=== PATIENT | female | born 2000 ===

== ENCOUNTER 2021-08-03 20:55 | Emergency (ER) | payer OTHER, MEDICAID ==
[~2021-08-03] VITALS: Ht 172 cm; Wt 66.0 kg
[~2021-08-03 20:55] MED LIST: ACET-93 PO; ALBU8.5H2 IH; ANTIBIOTIC; AZIT250T12 PO; CEPH500T PO; FERR-84 PO; FLUT16SP22 NS; FLUT8AER2 IH; IBUP-844 PO; MONT5TAB11 PO; PRD20T PO; PREN-142 PO; STEROID
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
[2021-08-03] MEDS ORDERED: TETANUS,DIPTH,PERTUSS P/F (BOOSTRIX) 0.5 ML VIAL IM ONE (21:15)
[2021-08-03 21:23] LABS: BASOPHILS % (AUTO) 0 % (0-10); EOSINOPHILS # (AUTO) 0.2 10^3/uL (0.0-0.3); EOSINOPHILS % (AUTO) 2 % (0-10); HEMATOCRIT 40 % (35-52); HEMOGLOBIN 13.1 g/dL (11.5-16.0); LYMPHOCYTES # (AUTO) 3.4 10^3/uL (1.0-4.0); LYMPHOCYTES % (AUTO) 31 % (12-44); MEAN CORPUSCULAR HEMOGLOBIN 29 pg (25-34); MEAN CORPUSCULAR HGB CONC 33 g/dL (32-36); MEAN CORPUSCULAR VOLUME 89 fL (80-99); MEAN PLATELET VOLUME 8.6 fL (9.0-12.2); MONOCYTES # (AUTO) 0.5 10^3/uL (0.0-1.0); MONOCYTES % (AUTO) 5 % (0-12); NEUTROPHILS # (AUTO) 6.5 10^3/uL (1.8-7.8); NEUTROPHILS % (AUTO) 61 % (42-75); PLATELET COUNT 323 10^3/uL (130-400); WHITE BLOOD COUNT 10.7 10^3/uL (4.3-11.0)
[2021-08-03 21:26] LABS: ALBUMIN 4.1 GM/DL (3.2-4.5); CHLORIDE 107 MMOL/L (98-107); POTASSIUM 3.5 MMOL/L (3.6-5.0); SODIUM 139 MMOL/L (135-145)
[2021-08-03 21:27] LABS: AMYLASE 59 U/L (25-125)
[2021-08-03 21:28] LABS: CALCIUM 9.1 MG/DL (8.5-10.1)
[2021-08-03 21:29] LABS: GLUCOSE 93 MG/DL (70-105); INR 1.1 (0.8-1.4); PROTHROMBIN TIME PATIENT 14.4 SEC (12.2-14.7); TOTAL PROTEIN 6.6 GM/DL (6.4-8.2)
[2021-08-03 21:30] LABS: CARBON DIOXIDE 20 MMOL/L (21-32)
[2021-08-03 21:31] LABS: BILIRUBIN,TOTAL 0.4 MG/DL (0.1-1.0)
[2021-08-03 21:32] LABS: ALKALINE PHOSPHATASE 81 U/L (40-136)
[2021-08-03 21:33] LABS: CREATININE SERUM 0.81 MG/DL (0.60-1.30); GFR ESTIMATED 107
[2021-08-03 21:34] LABS: BUN/CREATININE RATIO 9
[2021-08-03 21:36] LABS: ALANINE AMINOTRANSFERASE 30 U/L (0-55); LIPASE 22 U/L (8-78)
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
[2021-08-03] MEDS ORDERED: NS 100 ML (IVPB) BAG IV ONE (21:45)
[2021-08-03] MEDS ORDERED: IOHEXOL 350 MG/ML 100 ML (OMNIPAQUE 350) VIAL IV ONE (21:45)
[2021-08-03] MEDS ORDERED: HOLD METFORMIN - RECEIVED CONTRAST 20 ML VIAL IV SCH (21:45)
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
[2021-08-03] MEDS ORDERED: fentaNYL INJ 100 MCG/2 ML AMP IVP STA (22:08)
[2021-08-03] MEDS ORDERED: CYCL10TA25 PO (22:19)
[2021-08-03] MEDS ORDERED: NAPR500T8 PO (22:19)
[2021-08-03] MEDS ORDERED: TRAM-42 PO (22:20)
[2021-08-03] MEDS ORDERED: RX-CYCLOBENZAPRINE 10 MG (FLEXERIL) TAB PPK#3 PO STA (22:20)
[2021-08-03] MEDS ORDERED: RX-NAPROXEN (NAPROSYN) 250 MG TAB PPK#4 PO STA (22:20)
[2021-08-03 22:44] LABS: BILIRUBIN,URINE NEGATIVE (NEGATIVE); CLARITY,URINE CLEAR; COLOR,URINE YELLOW; GLUCOSE, URINE (UA) NEGATIVE (NEGATIVE); KETONES,URINE NEGATIVE (NEGATIVE); LEUKOCYTE ESTERASE ,URINE NEGATIVE (NEGATIVE); NITRITE,URINE NEGATIVE (NEGATIVE); PH,URINE 6.5 (5-9); PROTEIN,URINE NEGATIVE (NEGATIVE)
[2021-08-03 22:51] VITALS: BP 125/79
[2021-08-03 22:55] LABS: BACTERIA,URINE FEW /HPF; SQUAMOUS EPITHELIAL CELL,UR 0-2 /HPF; WBC,URINE 0-2 /HPF
[2021-08-03 23:02] LABS: AMPHETAMINE SCREEN, URINE NEGATIVE (NEGATIVE); BARBITURATE SCREEN URINE NEGATIVE (NEGATIVE); BENZODIAZEPINES SCREEN URINE NEGATIVE (NEGATIVE); CANNABINOID SCREEN, URINE POSITIVE (NEGATIVE); COCAINE SCREEN URINE NEGATIVE (NEGATIVE); METHADONE STAT NEGATIVE (NEGATIVE); METHAMPHETAMINE SCREEN URINE S NEGATIVE (NEGATIVE); OPIATE SCREEN URINE NEGATIVE (NEGATIVE); OXYCODONE STAT NEGATIVE (NEGATIVE); PROPOXYPHENE STAT NEGATIVE (NEGATIVE); TRICYCLIC ANTIDEPRESSANTS SCRE NEGATIVE (NEGATIVE)
== END 2021-08-03 23:02 | disposition home or self-care (01) ==
LOC: ER 20:57
DX: S16.1XXA Strain of muscle, fascia and tendon at neck level, initial encounter (principal); S39.012A Strain of muscle, fascia and tendon of lower back, initial encounter; S40.022A Contusion of left upper arm, initial encounter; S09.90XA Unspecified injury of head, initial encounter; R07.89 Other chest pain; Z23 Encounter for immunization; V89.2XXA Person injured in unspecified motor-vehicle accident, traffic, initial encounter
CPT/HCPCS: 70450; 70486; 71045; 71260; 72125; 72128; 72131; 72170; 73030; 73060; 74177; 80053; 80306; 81000; 82150; 83690; 84703; 85025; 85610; 85730; 93041; 99284; G0480; 36415; 80320; 90715

== ENCOUNTER 2021-10-22 05:43 | Emergency (ER) | payer MEDICAID ==
[~2021-10-22] VITALS: Ht 172 cm; Wt 63.6 kg
[~2021-10-22 05:43] MED LIST changes: +CYCL10TA25 PO; +NAPR500T8 PO; +TRAM-42 PO
[2021-10-22 06:06] VITALS: BP_SYST 100; BP_SYST 107; BP_SYST 121; BP_DIAS 76; BP_DIAS 78; BP_DIAS 80
[2021-10-22 06:22] LABS: BILIRUBIN,URINE NEGATIVE (NEGATIVE); CLARITY,URINE CLOUDY; COLOR,URINE ORANGE; GLUCOSE, URINE (UA) NEGATIVE (NEGATIVE); KETONES,URINE NEGATIVE (NEGATIVE); LEUKOCYTE ESTERASE ,URINE TRACE (NEGATIVE); NITRITE,URINE NEGATIVE (NEGATIVE); PH,URINE 5.5 (5-9); PROTEIN,URINE NEGATIVE (NEGATIVE)
[2021-10-22 06:23] LABS: BASOPHILS # (AUTO) 0.1 10^3/uL (0.0-0.1); BASOPHILS % (AUTO) 1 % (0-10); EOSINOPHILS # (AUTO) 0.4 10^3/uL (0.0-0.3); EOSINOPHILS % (AUTO) 4 % (0-10); HEMATOCRIT 41 % (35-52); HEMOGLOBIN 13.6 g/dL (11.5-16.0); LYMPHOCYTES % (AUTO) 35 % (12-44); MEAN CORPUSCULAR HEMOGLOBIN 31 pg (25-34); MEAN CORPUSCULAR HGB CONC 33 g/dL (32-36); MEAN CORPUSCULAR VOLUME 92 fL (80-99); MEAN PLATELET VOLUME 8.6 fL (9.0-12.2); MONOCYTES # (AUTO) 0.6 10^3/uL (0.0-1.0); MONOCYTES % (AUTO) 7 % (0-12); NEUTROPHILS # (AUTO) 4.5 10^3/uL (1.8-7.8); NEUTROPHILS % (AUTO) 53 % (42-75); PLATELET COUNT 266 10^3/uL (130-400); WHITE BLOOD COUNT 8.5 10^3/uL (4.3-11.0)
--- NOTE | 2021-10-22 06:29 | ED Syncope ---
General Chief Complaint: Dizziness/Syncope Stated Complaint: PASSED OUT,BLURRY VISION,SHAKING Source of Information: Patient Exam Limitations: No Limitations History of Present Illness Date Seen by Provider: Oct 22, 2021 Time Seen by Provider: 05:58 Initial Comments Patient to the ER by private conveyance from work with chief complaint that just prior to arrival she says she started feeling like her vision was blurry and she was getting weak so she sat down and passed out on the job. She says the She remembers was somebody tapping on her forehead. She says this happened a few times in the past when she was but no significant work-up was done and it has not happened since then. She did eat a granola bar at 430 this morning. She does not have any known medical history. She says there is a family history of seizures, diabetes, high blood pressure, heart disease etc. She has a history of a heart murmur but no other known medical history. She is never had EEG or work-up for this in the past. She is having no visual disturbance now but does endorse a mild headache. She is currently on her menses. Allergies and Home Medications Allergies Coded Allergies: latex (Verified Allergy, Unknown, 08/06/21) Patient Home Medication List Home Medication List Reviewed: Yes Acetaminophen (Acetaminophen) 500 Mg Tablet, 1,000 MG PO Q8HR Prescribed by: KENNETH QUINTERO on 02/10/211820 Cephalexin (Cephalexin) 500 Mg Tablet, 500 MG PO BID Prescribed by: ELIJAH BERMUDEZ on 02/05/212030 Cyclobenzaprine HCl (Cyclobenzaprine HCl) 10 Mg Tablet, 10 MG PO Q8H PRN for SPASMS Prescribed by: TAMMY HUNTER on 08/03/212218 Ferrous Sulfate (Iron) 325 Mg Tablet, 325 MG PO DAILY, (Reported) Entered as Reported by: ELIJAH BERMUDEZ on 02/05/212026 Ibuprofen (Ibu) 600 Mg Tablet, 600 MG PO Q6HR Prescribed by: KENNETH QUINTERO on 02/10/211820 Naproxen (Naproxen) 500 Mg Tablet.dr, 500 MG PO BID Prescribed by: TAMMY HUNTER on 08/03/212218 Vit No.124/Iron/FA ( Vitamin Tablet) 1 Each Tablet, 1 EACH PO DAILY, (Reported) Entered as Reported by: ELIJAH BERMUDEZ on 02/05/212026 Tramadol HCl (Ultram) 50 Mg Tablet, 50 MG PO Q4H Prescribed by: TAMMY HUNTER on 08/03/212219 Review of Systems Constitutional: No chills, No diaphoresis EENTM: No ear discharge, No ear pain Respiratory: No cough, No short of breath Cardiovascular: No chest pain, No edema Gastrointestinal: No abdominal pain, No constipation, No diarrhea, No nausea Genitourinary: No discharge, No dysuria Musculoskeletal: No back pain, No joint pain All Other Systems Reviewed Negative Unless Noted: Yes Past Tggkiiw-Lysqza-Ajdjip Hx Patient Social History Tobacco Use?: No Use of E-Cig and/or Vaping dev: No Substance use?: No Immunizations Up To Date Tetanus Booster (TDap): Less than 5yrs Past Medical History Surgery/Hospitalization HX: heart murmur, concussions Surgeries: No Respiratory: No Asthma Cardiac: Yes Heart Murmur Neurological: Yes Concussion Reproductive Disorders: No Genitourinary: No Gastrointestinal: No Gastroesophageal Reflux Musculoskeletal: No Endocrine: No HEENT: No Cancer: No Psychosocial: No Sleep Difficulties Integumentary: No Blood Disorders: No Family Medical History No Pertinent Family Hx Physical Exam Vital Signs Vital Signs - First Documented 10/22/21 05:58 Pulse 71 Resp 18 B/P (MAP) 113/86 (95) Pulse Ox 100 O2 Delivery Room Air Capillary Refill : Height, Weight, BMI Height: 5'6" Weight: 145lbs. oz. 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 Norm as Tested Cranial Nerves: Normal Hearing, Normal Speech, PERRL Motor/Sensory: No Motor Deficit, No Sensory Deficit Skin: Warm/Dry Progress/Results/Core Measures Results/Orders Lab Results Laboratory Tests Test 10/22/21 06:10 10/22/21 06:11 10/22/21 07:09 Range/Units White Blood Count 8.5 4.3-11.0 10^3/uL Red Blood Count 4.45 3.80-5.11 10^6/uL Hemoglobin 13.6 11.5-16.0 g/dL Hematocrit 41 35-52 % Mean Corpuscular Volume 92 80-99 fL Mean Corpuscular Hemoglobin 31 25-34 pg Mean Corpuscular Hemoglobin Concent 33 32-36 g/dL Red Cell Distribution Width 12.1 10.0-14.5 % Platelet Count 266 130-400 10^3/uL Mean Platelet Volume 8.6 L 9.0-12.2 fL Immature Granulocyte % (Auto) 0 % Neutrophils (%) (Auto) 53 42-75 % Lymphocytes (%) (Auto) 35 12-44 % Monocytes (%) (Auto) 7 0-12 % Eosinophils (%) (Auto) 4 0-10 % Basophils (%) (Auto) 1 0-10 % Neutrophils # (Auto) 4.5 1.8-7.8 10^3/uL Lymphocytes # (Auto) 3.0 1.0-4.0 10^3/uL Monocytes # (Auto) 0.6 0.0-1.0 10^3/uL Eosinophils # (Auto) 0.4 H 0.0-0.3 10^3/uL Basophils # (Auto) 0.1 0.0-0.1 10^3/uL Immature Granulocyte # (Auto) 0.0 0.0-0.1 10^3/uL Urine Color ORANGE Urine Clarity CLOUDY Urine pH 5.5 5-9 Urine Specific [place] 1.025 H 1.016-1.022 Urine Protein NEGATIVE NEGATIVE Urine Glucose (UA) NEGATIVE NEGATIVE Urine Ketones NEGATIVE NEGATIVE Urine Nitrite NEGATIVE NEGATIVE Urine Bilirubin NEGATIVE NEGATIVE Urine Urobilinogen 0.2 < = 1.0 MG/DL Urine Leukocyte Esterase TRACE H NEGATIVE Urine RBC (Auto) 3+ H NEGATIVE Urine RBC 50-100 H /HPF Urine WBC 2-5 /HPF Urine Squamous Epithelial Cells 5-10 /HPF Urine Crystals NONE /LPF Urine Bacteria MODERATE H /HPF Urine Casts PRESENT /LPF Urine Hyaline Casts 0-2 H /LPF Urine Mucus NEGATIVE /LPF Urine Culture Indicated YES Sodium Level 138 135-145 MMOL/L Potassium Level 3.6 3.6-5.0 MMOL/L Chloride Level 107 98-107 MMOL/L Carbon Dioxide Level 22 21-32 MMOL/L Anion Gap 9 5-14 MMOL/L Blood Urea Nitrogen 5 L 7-18 MG/DL Creatinine 0.70 0.60-1.30 MG/DL Estimat Glomerular Filtration Rate 127 BUN/Creatinine Ratio 7 Glucose Level 65 L 70-105 MG/DL Calcium Level 9.1 8.5-10.1 MG/DL Corrected Calcium 9.0 8.5-10.1 MG/DL Total Bilirubin 0.4 0.1-1.0 MG/DL Aspartate Amino Transf (AST/SGOT) 12 5-34 U/L Alanine Aminotransferase (ALT/SGPT) 15 0-55 U/L Alkaline Phosphatase 99 40-136 U/L Troponin I < 0.028 <0.028 NG/ML C-Reactive Protein High Sensitivity 0.06 0.00-0.50 MG/DL Total Protein 6.9 6.4-8.2 GM/DL Albumin 4.1 3.2-4.5 GM/DL Glucometer 55 *L 84 70-110 MG/DL My Orders Orders - ALEXANDRE SOUSA General/Regular (10/22/21 Breakfast) Accucheck Stat ONCE (10/22/21 06:14) Ekg Tracing (10/22/21 06:14) Continuous Ekg Monitoring (10/22/21 06:14) Troponin I Mcleod (10/22/21 06:14) Cbc With Automated Diff (10/22/21 06:14) Comprehensive Metabolic Panel (10/22/21 06:14) Hs C Reactive Protein (10/22/21 06:14) Ua Culture If Indicated (10/22/21 06:14) Urine Bedside (10/22/21 06:14) Ed Iv/Invasive Line Start (10/22/21 06:16) Lactated Ringers (Lr 1000 Ml Iv Solution (10/22/21 06:30) Urine Culture (10/22/21 06:10) Accucheck Stat ONCE (10/22/21 06:46) Medications Given in ED Current Medications Medications Dose Ordered Sig/David Route Start Time Stop Time Status Last Admin Dose Admin Lactated Ringer's 1,000 ml @ 0 mls/hr Q0M ONCE IV 10/22/21 06:30 10/22/21 06:31 DC 10/22/21 06:36 0 MLS/HR Vital Signs/I&O 10/22/21 10/22/21 05:58 06:06 Pulse 71 77 90 90 Resp 18 B/P (MAP) 113/86 (95) 121/78 (92) 107/80 (89) 100/76 (84) Pulse Ox 100 O2 Delivery Room Air Progress Progress Note #1: Time: 06:30 Progress Note Orthostats were positive with a significant jump in heart rate and drop in blood pressure. We will give her a liter of fluids, something to eat. Her glucose was 55. Check some labs for anemia, kidney dysfunction and recheck an Accu-Chek after she eats. Keep her on the monitor looking for dysrhythmias. Progress Note #2: Time: 07:46 Progress Note Repeat blood sugar after she ate her breakfast meal was 85. Her orthostats af ter the IV fluids are now normal. She is feeling better support and let her follow-up with primary care to investigate further as needed. Return precautions were given. We encouraged her to carry a protein snack on her person. Initial ECG Impression Date: Oct 22, 2021 Initial ECG Impression Time: 06:23 Initial ECG Rate: 71 Initial ECG Rhythm: Normal Sinus Initial ECG Intervals: Normal Initial ECG Impression: Normal Comment Normal sinus rhythm with a right-sided interventricular conduction duction delay. No ST elevation or depression noted. Departure Impression Primary Impression: Orthostatic syncope Additional Impression: Hypoglycemia Disposition: 01 HOME, SELF-CARE Condition: Stable Departure-Patient Inst. Decision time for Depature: 07:47 Referrals: RUDY SUE APRN (PCP/Family) Primary Care Physician Patient Instructions: Low Blood Sugar, Adult ED, Syncope (Fainting) (DC) Add. Discharge Instructions: You had an episode of syncope which in this case may have been contributed by low blood pressure from dehydration as well as low blood sugar. For the next couple days I suggest you drink a sports drink at least once or twice a day. Carry a protein snack with you and if you begin to feel dizzy or lightheaded start eating that. Follow-up with your primary care provider for further work-up as indicated. All discharge instructions reviewed with patient and/or family. Voiced und erstanding. Work/School Note: Work Release Form Date Seen in the Emergency Department: Oct 22, 2021 Return to Work: Oct 23, 2021 Restrictions: No Restrictions Copy Copies To 1: SWETHA LANIER TITUS J Oct 22, 2021 06:29
[2021-10-22] MEDS ORDERED: LACTATED RINGERS 1,000 ML IV ONE (06:30)
[2021-10-22 06:32] LABS: BACTERIA,URINE MODERATE /HPF; HYALINE CASTS, URINE 0-2 /LPF; RBC,URINE 50-100 /HPF
[2021-10-22 06:35] LABS: ALBUMIN 4.1 GM/DL (3.2-4.5); CHLORIDE 107 MMOL/L (98-107); POTASSIUM 3.6 MMOL/L (3.6-5.0); SODIUM 138 MMOL/L (135-145)
[2021-10-22 06:37] LABS: CALCIUM 9.1 MG/DL (8.5-10.1)
[2021-10-22 06:38] LABS: GLUCOSE 65 MG/DL (70-105); TOTAL PROTEIN 6.9 GM/DL (6.4-8.2)
[2021-10-22 06:39] LABS: CARBON DIOXIDE 22 MMOL/L (21-32)
[2021-10-22 06:40] LABS: BILIRUBIN,TOTAL 0.4 MG/DL (0.1-1.0)
[2021-10-22 06:41] LABS: ALKALINE PHOSPHATASE 99 U/L (40-136)
[2021-10-22 06:42] LABS: GFR ESTIMATED 127
[2021-10-22 06:43] LABS: BUN/CREATININE RATIO 7
[2021-10-22 06:45] LABS: ALANINE AMINOTRANSFERASE 15 U/L (0-55)
[2021-10-22 07:47] VITALS: BP_SYST 114; BP_SYST 116; BP_SYST 124; BP_DIAS 77; BP_DIAS 80; BP_DIAS 84
[2021-10-22 07:49] VITALS: BP 114/80
== END 2021-10-22 08:12 | disposition home or self-care (01) ==
LOC: EDUNIT# 05:43 → ER 05:48
DX: I95.1 Orthostatic hypotension (principal); E16.2 Hypoglycemia, unspecified
CPT/HCPCS: 36415; 80053; 81000; 82947; 84484; 84703; 85025; 86141; 87077; 87088; 93005